=== PATIENT | male | born 1955 | race Caucasian/White ===

== ENCOUNTER 2016-10-04 09:51 | Emergency (ER) | payer OTHER ==
--- NOTE | 2016-10-04 11:20 | RAD ---
Name: HERMINIO LAYTON Exam: Two-view chest Comparison: 04/11/2013 Clinical history: Fall. Left-sided pain. Findings: 2 views the chest are submitted. Heart, mediastinum and hilar structures are normal. Subsegmental atelectasis is noted in the right lung base. There is no failure, infiltrate, pleural effusion or pneumothorax. Left-sided bony trauma is not appreciated. There is a prominent area sclerosis at the level of the first rib which is present on chest/rib exam dated 09/29/2016 but is not present on prior chest radiograph dated 04/11/2013. Nonemergent follow-up bone scan and/or CT chest is recommended. Gallbladder is surgically absent. There is a moderate compression fracture of the upper lumbar type vertebral body which is unchanged from CT dated 09/17/2016 Impression: 1. Right basilar subsegmental atelectasis 2. Old compression fracture of approximately L1 3. Sclerosis of the right first rib. Consideration should be given to bone scan and/or CT
--- NOTE | 2016-10-04 11:21 | RAD ---
Name: HERMINIO LAYTON Exam: Left clavicle Comparison: None Clinical history: Left clavicle/shoulder pain. Trauma. Initial encounter. Findings: 2 views left clavicle are submitted. Bone density is decreased. There is degenerative disease of the acromioclavicular joint. Coracoclavicular joints normal. There is slight deformity of the clavicle which may be posttraumatic. There is no acute bony abnormality. Impression: 1. 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 No acute bony abnormality
[2016-10-04 11:25] LABS: URINE BILIRUBIN NEGATIVE (NEGATIVE); URINE BLOOD NEGATIVE (NEGATIVE); URINE GLUCOSE (UA) TRACE (NEGATIVE); URINE LEUKOCYTE ESTERASE NEGATIVE (NEGATIVE); URINE NITRITE NEGATIVE (NEGATIVE); URINE PROTEIN TRACE (NEGATIVE); URINE UROBILINOGEN 1 mg/dL (0-1 mg/dl)
[2016-10-04 11:28] LABS: URINE APPEARANCE CLEAR; URINE COLOR YELLOW
== END 2016-10-04 11:39 | disposition home or self-care (01) ==
LOC: ED 09:51
DX: S29.9XXA Unspecified injury of thorax, initial encounter (principal); J98.11 Atelectasis; E66.9 Obesity, unspecified; K21.9 Gastro-esophageal reflux disease without esophagitis; F17.210 Nicotine dependence, cigarettes, uncomplicated; W00.0XXA Fall on same level due to ice and snow, initial encounter